=== PATIENT | female | born 1965 | race Caucasian/White ===

== ENCOUNTER 2018-07-12 10:03 | Emergency (ER) | payer OTHER ==
[~2018-07-12] VITALS: Ht 157.5 cm; Wt 59.0 kg
[2018-07-12] MEDS ORDERED: ATENOLOL25 MG (10:36)
[2018-07-12] MEDS ORDERED: VASOTEC2.5 MG (10:36)
== END 2018-07-12 13:57 | disposition home or self-care (01) ==
LOC: ER 10:03
DX: M54.2 Cervicalgia (principal)

== ENCOUNTER → 2022-05-11 | Outpatient (CLI) | payer OTHER ==
[~2022-05-11] MED LIST: ATENOLOL25 MG; VASOTEC2.5 MG
== END | disposition home or self-care (01) ==
LOC: SONOGRAMA 09:28
PROVIDERS: ATTEND Pathology Anatomic Pathology & Clinical Pathology
DX: N63.20 Unspecified lump in the left breast, unspecified quadrant (principal)